=== PATIENT | male | born 1960 | race Caucasian/White ===

== ENCOUNTER 2017-07-30 18:46 | Emergency (ER) | payer OTHER ==
[~2017-07-30] VITALS: Ht 180.3 cm; Wt 91.0 kg
[2017-07-30 19:17] VITALS: Ht 180.3 cm; Wt 91.0 kg
[2017-07-30 19:59] VITALS: BP 130/63; PULSE 90; TEMP 36.6; O2SAT 96
--- NOTE | 2017-07-30 20:44 | EMERGENCY ROOM VISIT NOTE ---
History Report prepared by Jurgen: Mana Newton Under the Supervision of: Dr. Keegan Villanueva M.D. First contact with patient: 18:47 Stated Complaint: ETOH History of Present Illness The patient is a 56 year old male who presents to the Emergency Room with complaints of an episode of alcohol intoxication occurring prior to arrival. The patient states he was here for the game and was walking back to his car to get his phone. He states that the police picked him up because he was stumbling. The patient denies falling or injuring himself. The patient states that he cannot call anyone because he still didn't get his phone and he doesn't remember his friend's number. The patient denies a headache and chest pain or any other complaints. He notes he has no medical history. Per nursing staff, the patient blew a 0.2. Source of History: patient Onset: prior to arrival Position: other (global) Quality: other (global) Timing: other (episode) Associated Symptoms: No headache, No chest pain Note: The patient denies falling. Review of Systems See HPI for pertinent positives & negatives. A total of 10 systems reviewed and were otherwise negative. Past Medical & Surgical Medical Problems: (1) No Known Active Medical Problems Family History No pertinent family history Social History Alcohol Use: occasionally Occupation Status: retired Current/Historical Medications No Active Prescriptions or Reported Meds Allergies Coded Allergies: No Known Allergies (Unverified , 07/30/17) Physical Exam Vital Signs Date Time Temp Pulse Resp B/P (MAP) Pulse Ox O2 Delivery O2 Flow Rate FiO2 07/30/17 19:59 36.6 90 18 130/63 96 Room Air 07/30/17 19:17 36.8 96 18 130/76 95 Room Air 07/30/17 19:12 36.6 93 18 130/76 96 Room Air 07/30/17 19:12 94 Physical Exam Constitutional: Vital signs reviewed. Eyes: Pupils are equal round reactive to light. Conjunctiva are noninjected. ENT: Pharynx is clear without erythema or exudate. Mucous membranes are moist. Neck supple without meningeal signs. Respiratory: Clear to auscultation bilaterally. Breath sounds are equal bilaterally. Cardiovascular: Regular rate and rhythm. No rubs or gallops. GI: Soft, nondistended and nontender. Bowel sounds are present. Musculoskeletal: No peripheral edema. No lower extremity tenderness. Integumentary: No cyanosis. Neurological: The patient is awake and alert. Normal gait. No slurred speech. Appears mildly intoxicated. Psychiatric: Normal affect. Medical Decision & Procedures ED Course 1847: The patient was evaluated in room C12A. A complete history and physical exam was performed. 1930: I reevaluated the patient and his is unable to contact his friends since he doesn't have their phone numbers but he is going to take a cab to where his friends are. I discussed tonight's findings with the patient. He verbalized agreement of the treatment plan. The patient was discharged home. Medical Decision This is a 56-year-old male brought in for alcohol intoxication. I did perform a limited focused review of portions of the patient's old chart on the electronic medical record. The patient has had no recent pertinent visits to this hospital. I did evaluate the patient as noted above. He does admit to drinking alcohol tonight. He has not significantly intoxicated. He is able to walk without assistance or stumbling. His speech is normal. He is mentating and is awake and oriented 4. He was provided with safe transportation back to his friends and discharged in good condition. Medication Reconcilliation Current Medication List: was personally reviewed by me Blood Pressure Screening Patient's blood pressure: Elevated blood pressure Blood pressure disposition: Referred to PCP Impression Primary Impression: Alcoholic intoxication Scribe Attestation The scribe's documentation has been prepared under my direct and personally reviewed by me in its entirety. I confirm that the note above accurately reflects all work, treatment, procedures, and medical decision making performed by me. Departure Information Dispostion Home / Self-Care Prescriptions No Active Prescriptions or Reported Meds Forms HOME CARE DOCUMENTATION FORM, IMPORTANT VISIT INFORMATION Additional Instructions You have been examined and treated today on an emergency basis only. This is not a substitute for, or an effort to provide, complete comprehensive medical care. It is impossible to recognize and treat all injuries or illnesses in a single emergency department visit. It is therefore important that you follow up closely with your physician. Call as soon as possible for an appointment. Return for worsening symptoms or if you develop any other concerning symptoms. Problem Qualifiers Primary Impression: Alcoholic intoxication Complication of substance-induced condition: uncomplicated Qualified Codes: F10.920 - Alcohol use, unspecified with intoxication, uncomplicated
== END 2017-07-30 20:00 | disposition home or self-care (01) ==
LOC: C.EDC 18:48
DX: F10.920 Alcohol use, unspecified with intoxication, uncomplicated (principal)